=== PATIENT | female | born 1965 | race Two or more races ===

== ENCOUNTER 2023-06-08 18:59 | Emergency (ER) | payer OTHER ==
[~2023-06-08] VITALS: Ht 152.4 cm; Wt 83.9 kg
[~2023-06-08 18:59] MED LIST: HYDROCHLOROTH12.5 MG; LEVOTHYROXINE25 MCG; LOTREL 10-40 M1 EACH; NORFLEX100MG PO; TOPROL XL50 M1
[2023-06-08] MEDS ORDERED: RINGERS SOLUTION,LACTATED 1,000 ML IV STA (20:04)
[2023-06-08] MEDS ORDERED: FAMOtidine 10 MG/ML (4ML VIAL) IV PUSH STA (20:06)
[2023-06-08] MEDS ORDERED: ONDANSETRON HCL 2 MG/ML VIAL IV STA (20:06)
[2023-06-08] MEDS ORDERED: HYOSCYAMINE SULFATE 0.125 MG TAB.SUBL SL ONE (20:15)
[2023-06-08] MEDS ORDERED: METOCLOPRAMIDE HCL 5 MG/ML VIAL IM STA (20:20)
[2023-06-08 20:47] LABS: HEMOGLOBIN 13.5 g/dL (12.0-15.00); MEAN CELL VOLUME 94.6 fL (80.00-100.00); MEAN CORPUSCULAR HEMOGLOBIN 31.9 pg (27.00-32.0); MEAN CORPUSCULAR HGB CONC 33.7 g/dl (32.0-36.0); PLATELET COUNT 176 K/uL (150-450); RED BLOOD COUNT 4.23 M/uL (4.00-6.00); RED CELL DISTRIBUTION WIDTH 13.4 % (11.5-14.5)
[2023-06-08 21:30] LABS: ALBUMIN 3.5 gm/dL (3.4-5.0); BILIRUBIN TOTAL 0.58 mg/dL (0.3-1.2); CALCIUM 9.2 mg/dL (8.5-10.1); CREATININE SERUM 0.78 mg/dL (0.55-1.02); GFR 75.59; GLOBULINA 3.9 G/DL (2.4-3.5); POTASSIUM 3.51 mEq/L (3.5-5.1); TOTAL PROTEIN 7.4 gm/dL (6.4-8.2)
== END 2023-06-08 22:24 | disposition home or self-care (01) ==
LOC: ER 18:59
DX: K21.9 Gastro-esophageal reflux disease without esophagitis (principal); K29.70 Gastritis, unspecified, without bleeding; R07.89 Other chest pain

== ENCOUNTER 2024-04-24 10:12 | Emergency (ER) | payer OTHER ==
[~2024-04-24] VITALS: Ht 154.9 cm; Wt 93.0 kg
[2024-04-24] MEDS ORDERED: ACETAMINOPHEN 500 MG GEL..CAP PO ONE ×2 (13:15→13:32)
[2024-04-24] MEDS ORDERED: ONDANSETRON HCL 2 MG/ML VIAL IV ONE (13:30)
[2024-04-24] MEDS ORDERED: ONDANSETRON HCL 2 MG/ML VIAL ONE (13:32)
[2024-04-24 14:25] LABS: HEMATOCRIT 41.5 % (36.0-45.00); HEMOGLOBIN 14.5 g/dL (12.0-15.00); MEAN CELL VOLUME 92.7 fL (80.00-100.00); MEAN CORPUSCULAR HEMOGLOBIN 32.4 pg (27.00-32.0); MEAN CORPUSCULAR HGB CONC 34.9 g/dl (32.0-36.0); PLATELET COUNT 138 K/uL (150-450); RED BLOOD COUNT 4.47 M/uL (4.00-6.00); RED CELL DISTRIBUTION WIDTH 13.1 % (11.5-14.5)
[2024-04-24 14:44] LABS: ALBUMIN 3.6 gm/dL (3.4-5.0); BILIRUBIN TOTAL 0.45 mg/dL (0.3-1.2); CALCIUM 9.2 mg/dL (8.5-10.1); CREATININE SERUM 0.72 mg/dL (0.55-1.02); GFR 82.62; GLOBULINA 4.2 G/DL (2.4-3.5); POTASSIUM 3.6 mEq/L (3.5-5.1); TOTAL PROTEIN 7.8 gm/dL (6.4-8.2)
[2024-04-24] MEDS ORDERED: ZOFRAN8 MG PO (18:14)
[2024-04-24] MEDS ORDERED: PEPCID AC20 MG PO (18:14)
[2024-04-24] MEDS ORDERED: BUTALBIT-ACETA1 EACH PO (18:14)
== END 2024-04-24 18:21 | disposition home or self-care (01) ==
LOC: ER 10:15
PROVIDERS: Emergency Medicine
DX: G43.909 Migraine, unspecified, not intractable, without status migrainosus (principal); I10 Essential (primary) hypertension; E05.80 Other thyrotoxicosis without thyrotoxic crisis or storm; Z20.822 Contact with and (suspected) exposure to COVID-19
CPT/HCPCS: 36415; 70450; 96365; 99284; J2405